=== PATIENT | male | born 1985 | race Caucasian/White ===

== ENCOUNTER 2018-10-17 13:10 | Emergency (ER) | payer MEDICAID ==
[2018-10-17] MEDS: DEXAMETHASONE 10 MG/ML 1 ML INJ IM (14:03)
[2018-10-17] MEDS: DIPHENHYDRAMINE 50 MG INJ IM (14:03)
[2018-10-17] MEDS: FAMOTIDINE 20 MG TAB PO (14:03)
== END 2018-10-17 16:10 | disposition home or self-care (01) ==
LOC: FTE 13:10
DX: K12.2 Cellulitis and abscess of mouth (principal)
CPT/HCPCS: 70360; 96372; 99284-25

== ENCOUNTER 2018-10-25 12:32 | Emergency (ER) | payer MEDICAID ==
[2018-10-25] MEDS: SOD CHLORIDE 0.9% 1,000 ML IV (15:41)
[2018-10-25] MEDS: ONDANSETRON 4 MG INJ IV (15:44)
[2018-10-25] MEDS: MECLIZINE 12.5 MG TAB PO (15:44)
[2018-10-25 15:59] LABS: ADD MAN DIFF? NO
[2018-10-25 16:00] LABS: WHITE BLOOD COUNT 12.7 10^3/ul (4.8-10.8)
[2018-10-25 16:00] LABS: BASOPHILS % 0.2 % (0.0-2.0); EOSINOPHILS % 0.2 % (0.0-7.0); HEMATOCRIT 48.6 % (42.0-52.0); HEMOGLOBIN 16.7 g/dl (14.0-18.0); LYMPHOCYTES # 1.6 10^3/ul (0.8-2.9); LYMPHOCYTES % 12.9 % (15.0-51.0); MEAN CORPUSCULAR HEMOGLOBIN 29.4 pg (29.0-33.0); MEAN CORPUSCULAR HGB CONC 34.4 g/dl (32.0-37.0); MEAN CORPUSCULAR VOLUME 85.6 fl (82.0-101.0); MEAN PLATELET VOLUME 10.6 fl (7.4-10.4); MONOCYTE # 0.3 10^3/ul (0.3-0.9); MONOCYTES % 2.5 % (0.0-11.0); NEUTROPHIL # 10.6 10^3/ul (1.6-7.5); NEUTROPHILS % 83.8 % (39.0-77.0); PLATELET COUNT 314 10^3/UL (140-415); RED BLOOD COUNT 5.68 10^6/ul (4.70-6.10); RED CELL DISTRIBUTION WIDTH 12.4 % (11.5-14.5)
[2018-10-25 16:18] LABS: ALANINE AMINOTRANSFERASE 27 IU/L (13-69); ALBUMIN 4.7 g/dl (3.3-4.9); ALBUMIN/GLOBULIN RATIO 1.27; ALKALINE PHOSPHATASE 128 IU/L (42-121); ANION GAP 12 (5-13); ASPARTATE AMINO TRANSFERASE 25 IU/L (15-46); BILIRUBIN,INDIRECT 0.7 mg/dl (0-1.1); BILIRUBIN,TOTAL 0.7 mg/dl (0.2-1.3); BLOOD UREA NITROGEN 15 mg/dl (7-20); CARBON DIOXIDE 26 mmol/L (21-31); CHLORIDE 103 mmol/L (97-110); CREATININE 0.75 mg/dl (0.61-1.24); Estimated GFR > 60 mL/min (>60); GLUCOSE 138 mg/dl (70-220); POTASSIUM 3.8 mmol/L (3.5-5.1); SODIUM 141 mmol/L (135-144); TOTAL PROTEIN 8.4 g/dl (6.1-8.1)
== END 2018-10-25 17:14 | disposition home or self-care (01) ==
LOC: FTE 12:32
DX: H81.13 Benign paroxysmal vertigo, bilateral (principal)
CPT/HCPCS: 36415; 80053; 85025; 96374; 99284-25